=== PATIENT | male | born 1990 | race Caucasian/White ===

== ENCOUNTER 2019-08-02 18:24 | Emergency (ER) | payer OTHER ==
[~2019-08-02] VITALS: Ht 170.2 cm; Wt 81.8 kg
[2019-08-02 18:56] VITALS: BP 131/99
--- NOTE | 2019-08-02 19:10 | NUR ---
PT STATES HE DOESN'T KNOW IF HES ALLERGIC TO MEDICATIONS, BUT WAS ABLE TO STATE HE WAS IN [place]
== END 2019-08-02 19:23 | disposition home or self-care (01) ==
LOC: EDBD 18:25 → ER 18:25
DX: S80.812A Abrasion, left lower leg, initial encounter (principal); S80.811A Abrasion, right lower leg, initial encounter; F10.129 Alcohol abuse with intoxication, unspecified; V49.88XA Car occupant (driver) (passenger) injured in other specified transport accidents, initial encounter; Y93.89 Activity, other specified; Y92.413 State road as the place of occurrence of the external cause; Y99.9 Unspecified external cause status; Y90.9 Presence of alcohol in blood, level not specified
CPT/HCPCS: 99283

== ENCOUNTER 2021-03-11 00:23 | Emergency (ER) | payer MEDICAID, OTHER ==
[~2021-03-11] VITALS: Ht 170.2 cm; Wt 79.5 kg
[2021-03-11] MEDS ORDERED: LIDOcaine 1% W/epiNEPHrine 1:200,000 10ml vial IJ ONE (00:40)
[2021-03-11] MEDS ORDERED: TETanus/Pertussis (Acell)/Diphther VAC/PF (Tdap-Adult) 0.5ml syringe IMVAC ONE (00:40)
[2021-03-11 01:21] LABS: BASOPHILS # (AUTO) 0.1 X10'3 (0-0.2); EOSINOPHILS # (AUTO) 0.2 X10'3 (0-0.9); EOSINOPHILS % (AUTO) 3.7 % (0-6); HEMATOCRIT 47.7 % (42.0-52.0); HEMOGLOBIN 16.6 g/dl (14.0-17.9); LYMPHOCYTES # (AUTO) 1.4 X10'3 (1.1-4.8); LYMPHOCYTES % (AUTO) 24.4 % (21-51); MEAN CORPUSCULAR HEMOGLOBIN 31.5 PG (27.0-31.0); MEAN CORPUSCULAR HGB CONC 34.8 g/dL (33.0-36.5); MEAN CORPUSCULAR VOLUME 90.5 FL (78-98); MEAN PLATELET VOLUME 7.4 FL (7.4-10.4); MONOCYTES # (AUTO) 0.6 X10'3 (0-0.9); MONOCYTES % (AUTO) 10.8 % (2-12); NEUTROPHILS # (AUTO) 3.4 X10'3 (1.8-7.7); NEUTROPHILS % (AUTO) 59.1 % (42-75); PLATELET COUNT 222 X10'3 (140-440); RED BLOOD COUNT 5.27 X10'6 (4.70-6.10); RED CELL DISTRIBUTION WIDTH 13.9 % (11.5-14.5); WHITE BLOOD COUNT 5.8 X10'3 (4.5-11.0)
[2021-03-11 01:22] LABS: ALANINE AMINOTRANSFERASE 34 U/L (12-78); ALBUMIN 3.6 G/DL (3.4-5.0); ALBUMIN/GLOBULIN RATIO 0.9 (1.1-1.5); ALKALINE PHOSPHATASE 90 IU/L (46-116); ANION GAP 12 (8-16); ASPARTATE AMINO TRANSFERASE 56 U/L (10-37); BILIRUBIN,TOTAL 0.4 MG/DL (0.1-1.0); BLOOD UREA NITROGEN 10 MG/DL (7-18); BUN/CREATININE RATIO 11.8 (5.4-32.0); CHLORIDE 104 MMOL/L (99-107); CREATININE 0.85 MG/DL (0.60-1.10); GLUCOSE 90 MG/DL (70-104); POTASSIUM 3.7 MMOL/L (3.5-5.1); SODIUM 143 MMOL/L (135-145); TOTAL CARBON DIOXIDE 26.6 MMOL/L (24-32); TOTAL PROTEIN 7.6 G/DL (6.4-8.2); eGFR > 90 ML/MIN
[2021-03-11 01:24] LABS: ETHANOL 0.296 GM/DL (0.0-0.010)
[2021-03-11 01:25] LABS: ACETAMINOPHEN < 2.0 UG/ML (10-30)
--- NOTE | 2021-03-11 01:29 | NUR ---
Pt attempted to elope from the ED. Security and staff were able to escort him back into his room. Pt was expressively agitated and upset and swearing loudly. Pt observed to be upset about 5150 hold. Pt is now resting in bed with security on standby.
[2021-03-11 01:31] LABS: URINE AMPHETAMINE SCREEN NEGATIVE (Neg); URINE BARBITUATE SCREEN NEGATIVE (Neg); URINE BENZODIAZEPINES SCREEN NEGATIVE (Neg); URINE CANNABINOID SCREEN POSITIVE (Neg); URINE COCAINE SCREEN POSITIVE (Neg); URINE METHADONE SCREEN NEGATIVE (Neg); URINE OPIATE SCREEN NEGATIVE (Neg); URINE PHENCYCLIDINE SCREEN NEGATIVE (Neg)
--- NOTE | 2021-03-11 01:43 | NUR ---
at bedside putting stiches in the self-inflicted lac. While biometric technician was cleaning the wound, the lac began arterial bleed. was immediately called to the bedside where she began to lac repair with stitches.
--- NOTE | 2021-03-11 04:00 | NUR ---
received patient from ER ambulatory with RN ,patient alert oriented x4,no complain of pain,no respiratory distress ,no suicidal idea at this time,patient with dressing on left forearm clean not draining,awaiting for mental health evaluation,will monitored.
[2021-03-11 05:58] VITALS: BP 123/79
--- NOTE | 2021-03-11 06:22 | NUR ---
Patient sleeping on left side. No distress observed. Continue to monitor.
--- NOTE | 2021-03-11 08:15 | NUR ---
Patient eating breakfast. No distress observed. Continue to monitor.
--- NOTE | 2021-03-11 08:55 | NUR ---
[facility], evaluating patient. No distress observed. Continue to monitor.
--- NOTE | 2021-03-11 10:10 | NUR ---
at bedside. Patient and touchy/feely. No distress observed. Continue to monitor.
--- NOTE | 2021-03-11 10:26 | NUR ---
[facility], evaluating patient. No distress observed. Continue to montor.
--- NOTE | 2021-03-11 12:22 | NUR ---
Patient and are attempting to make a therapist appointment. Continue to monitor.
--- NOTE | 2021-03-11 13:42 | NUR ---
Patient attempting to contact therapist for an appointment. Continue to monitor.
== END 2021-03-11 15:40 | disposition home or self-care (01) ==
LOC: ER 00:23
DX: S51.812A Laceration without foreign body of left forearm, initial encounter (principal); Z20.822 Contact with and (suspected) exposure to COVID-19; R45.851 Suicidal ideations; F17.200 Nicotine dependence, unspecified, uncomplicated; Z72.89 Other problems related to lifestyle; W45.8XXA Other foreign body or object entering through skin, initial encounter; Y93.89 Activity, other specified; Y92.89 Other specified places as the place of occurrence of the external cause; Y99.8 Other external cause status
CPT/HCPCS: 12004; 12034; 36415; 80053; 80305; 80320; 80329; 85025; 87426; 90471; 90715; 99285

== ENCOUNTER 2021-06-03 11:39 | Emergency (ER) | payer MEDICAID, OTHER ==
[~2021-06-03] VITALS: Ht 177.8 cm; Wt 82.0 kg
[2021-06-03 12:18] LABS: BASOPHILS % (AUTO) 0.4 % (0-1); EOSINOPHILS # (AUTO) 0.1 X10'3 (0-0.9); EOSINOPHILS % (AUTO) 0.5 % (0-6); HEMATOCRIT 48.3 % (42.0-52.0); HEMOGLOBIN 16.6 g/dl (14.0-17.9); LYMPHOCYTES # (AUTO) 0.9 X10'3 (1.1-4.8); LYMPHOCYTES % (AUTO) 8.1 % (21-51); MEAN CORPUSCULAR HEMOGLOBIN 31.6 PG (27.0-31.0); MEAN CORPUSCULAR HGB CONC 34.3 g/dL (33.0-36.5); MEAN CORPUSCULAR VOLUME 92.2 FL (78-98); MEAN PLATELET VOLUME 7.1 FL (7.4-10.4); MONOCYTES # (AUTO) 1.1 X10'3 (0-0.9); MONOCYTES % (AUTO) 10.4 % (2-12); NEUTROPHILS # (AUTO) 8.5 X10'3 (1.8-7.7); NEUTROPHILS % (AUTO) 80.6 % (42-75); PLATELET COUNT 196 X10'3 (140-440); RED BLOOD COUNT 5.24 X10'6 (4.70-6.10); RED CELL DISTRIBUTION WIDTH 13.1 % (11.5-14.5); WHITE BLOOD COUNT 10.5 X10'3 (4.5-11.0)
[2021-06-03 12:30] LABS: ALANINE AMINOTRANSFERASE 51 U/L (12-78); ALBUMIN 3.8 G/DL (3.4-5.0); ALBUMIN/GLOBULIN RATIO 0.9 (1.1-1.5); ALKALINE PHOSPHATASE 99 IU/L (46-116); ANION GAP 9 (8-16); ASPARTATE AMINO TRANSFERASE 61 U/L (10-37); BILIRUBIN,TOTAL 0.8 MG/DL (0.1-1.0); BLOOD UREA NITROGEN 6 MG/DL (7-18); BUN/CREATININE RATIO 7.9 (5.4-32.0); CALCIUM 8.5 MG/DL (8.5-10.1); CHLORIDE 101 MMOL/L (99-107); CREATININE 0.76 MG/DL (0.60-1.10); GLUCOSE 80 MG/DL (70-104); POTASSIUM 3.8 MMOL/L (3.5-5.1); SODIUM 141 MMOL/L (135-145); TOTAL CARBON DIOXIDE 30.9 MMOL/L (24-32); TOTAL PROTEIN 7.9 G/DL (6.4-8.2); eGFR > 90 ML/MIN
[2021-06-03 12:39] LABS: ETHANOL 0.171 GM/DL (0.0-0.010)
[2021-06-03] MEDS ORDERED: LORazepam 1 MG tablet PO ONE ×2 (12:45→13:15)
--- NOTE | 2021-06-03 17:00 | NUR ---
Pt resting with eyes closed, effortless respirations observed.
[2021-06-03 17:23] LABS: URINE AMPHETAMINE SCREEN NEGATIVE (Neg); URINE BARBITUATE SCREEN NEGATIVE (Neg); URINE BENZODIAZEPINES SCREEN NEGATIVE (Neg); URINE CANNABINOID SCREEN POSITIVE (Neg); URINE COCAINE SCREEN POSITIVE (Neg); URINE METHADONE SCREEN NEGATIVE (Neg); URINE OPIATE SCREEN NEGATIVE (Neg); URINE PHENCYCLIDINE SCREEN NEGATIVE (Neg)
[2021-06-03 17:29] LABS: CLARITY,URINE CLEAR (Clear); COLOR,URINE YELLOW (Yellow); GLUCOSE, URINE NEGATIVE (Neg); KETONES,URINE NEGATIVE (Neg); LEUKOCYTE ESTERASE ,URINE NEGATIVE (Neg); NITRITES, URINE NEGATIVE (Neg); OCCULT BLOOD,URINE NEGATIVE (Neg); PH,URINE 5.5 (4.8-8.0); PROTEIN,URINE NEGATIVE (Neg)
[2021-06-03 17:32] LABS: UA COLLECTION TYPE URINAL
--- NOTE | 2021-06-03 17:40 | NUR ---
Packet sent to [facility]
[2021-06-03] MEDS ORDERED: NO HOME MEDS (19:19)
--- NOTE | 2021-06-03 19:28 | NUR ---
One to one with the patient to assess severity of depressive symptoms and self harm risk. The patient stated that he has been feeling suicidal for the past 4 days and when asked if he had a plan he replied, "A bunch of different ways" He reports that he has been drinking every day and when he stops drinking he has tremors. He denies a history of hallucinations or seizures with etoh withdrawals. Stated he usually drinks "just enough to get numb" He stated that his anxiety is high. He was not able to identify any stressors. He stated that he lives with his mother and two younger siblings.
[2021-06-03] MEDS ORDERED: acetaminophen 325mg tablet PO PRN (19:40)
--- NOTE | 2021-06-03 19:46 | NUR ---
Dr. Fox made aware of patient heel wounds and orders received.
[2021-06-03] MEDS: bacitracin 15gm ointment TP SCH (20:16)
--- NOTE | 2021-06-03 20:52 | NUR ---
The patient appears to be sleeping
--- NOTE | 2021-06-03 22:53 | NUR ---
The patient appears to be sleeping
--- NOTE | 2021-06-04 01:03 | NUR ---
The patient appears to be sleeping
--- NOTE | 2021-06-04 03:11 | NUR ---
The patient appears to be sleeping
--- NOTE | 2021-06-04 05:03 | NUR ---
THe patient appeared to have slept well throughout the night
--- NOTE | 2021-06-04 07:05 | NUR ---
Pt sleeping on right side, respirations even and unlabored.
--- NOTE | 2021-06-04 09:03 | NUR ---
[facility] at bedside. Pt ate 100% of breakfast. Pt was placed on a 5150 hold. Pt calm and cooperative.
[2021-06-04] MEDS: bacitracin 15gm ointment TP SCH ×2 (09:33→20:00)
--- NOTE | 2021-06-04 11:05 | NUR ---
Pt resting comfortably on right side. Pt arouses to name, respirations even and unlabored.
--- NOTE | 2021-06-04 13:59 | NUR ---
Pt sleeping comfortably on left side. Pt ate 100% of his lunch. Pt has been calm/coopertive. Pt continues to endorse suicidal thoughts with a plan to overdose on "cocaine and alcohol." "I will do it."
--- NOTE | 2021-06-04 14:05 | NUR ---
Spoke with Dr. Lewis to assess pt's posterior ankles. Area around wound is red. Covered with a dry dressing.
--- NOTE | 2021-06-04 15:43 | NUR ---
Pt's ankles were cleaned and dressed. Pt resting comfortably, respirations even and unlabored.
--- NOTE | 2021-06-04 16:41 | NUR ---
Dr. Ware assessed area. Continue to monitor, keep area clean and dry.
[2021-06-04] MEDS ORDERED: chlordiazePOXIDE 25mg capsule PO STA (19:52)
[2021-06-04] MEDS ORDERED: cloNIDine 0.1 MG/24 HOUR patch (7 day patch) TD SCH (19:55)
--- NOTE | 2021-06-04 19:56 | NUR ---
spoke with chapis sanders regarding pt being shaky and tremulous and reporting high levels of anxiety. received verbal orders for librium 25mg po bid and a one time now dose of librium 100mg po now. also, clonidine patch 0.1mg daily. orders placed as received
[2021-06-04] MEDS ORDERED: chlordiazePOXIDE 25mg capsule PO SCH (20:00)
[2021-06-04] MEDS ORDERED: chlordiazePOXIDE 25mg capsule PO PRN (20:10)
--- NOTE | 2021-06-04 20:26 | NUR ---
During 1:1 bedside assessment, pt reports suicidal ideation with no plan as "would include me getting out of this building and I can't right now." Pt did not elaborate. Pt states he does sometimes have auditory and visual hallucinations but denies any today. States he feels extremely anxious and appears tremulous. vitals all WNL. spoke with chapis sanders and received medication orders and administered to pt. pt denies any hx of seizures or severe withdrawal symptoms. pt denies homicidal ideation and has an anxious affect. appears disheveled with unbrushed hair and wrinkled clothes-has not requested to change since being here. pt states he stayed in bed most of day and feels depressed.
--- NOTE | 2021-06-04 22:52 | NUR ---
PT APPEARS TO BE SLEEPING PEACEFULLY ON RIGHT SIDE. NO S/S ACUTE DISTRESS, RESPIRATIONS EQUAL AND UNLABORED.
--- NOTE | 2021-06-05 01:44 | NUR ---
pt appears to be sleeping
--- NOTE | 2021-06-05 03:57 | NUR ---
pt appears to be sleeping
[2021-06-05] MEDS: bacitracin 15gm ointment TP SCH (08:00)
--- NOTE | 2021-06-05 15:16 | NUR ---
[facility] AT BEDSIDE COMPLETING MEDI [facility] FORM. 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
--- NOTE | 2021-06-05 15:22 | NUR ---
UP TO BATHROOM
[2021-06-05 17:55] VITALS: BP 142/93
== END 2021-06-05 19:05 ==
LOC: ER 11:40
DX: R45.851 Suicidal ideations (principal); Z20.822 Contact with and (suspected) exposure to COVID-19; R11.10 Vomiting, unspecified; Z72.89 Other problems related to lifestyle; F11.90 Opioid use, unspecified, uncomplicated
CPT/HCPCS: 36415; 70450; 72125; 80053; 80305; 80320; 81003; 84443; 85025; 87635; 99285; C9803

== ENCOUNTER 2024-10-21 02:18 | Emergency (ER) | payer MEDICAID ==
[~2024-10-21] VITALS: Ht 167.6 cm; Wt 70.5 kg
[~2024-10-21 02:18] MED LIST: NO HOME MEDS
[2024-10-21] MEDS: naloxone 0.4 mg/ml inj IV ONE (02:25)
[2024-10-21] MEDS: normal saline 1000ml 1,000 ML IV ONE (02:26)
[2024-10-21] MEDS: naloxone 2mg/2ml inj ONE (02:26)
[2024-10-21 02:43] LABS: BASOPHILS # (AUTO) 0.1 X10'3 (0-0.2); BASOPHILS % (AUTO) 1.2 % (0-1); EOSINOPHILS # (AUTO) 0.1 X10'3 (0-0.9); EOSINOPHILS % (AUTO) 1.5 % (0-6); HEMATOCRIT 45.7 % (42.0-52.0); HEMOGLOBIN 15.6 g/dl (14.0-17.9); LYMPHOCYTES # (AUTO) 2.2 X10'3 (1.1-4.8); LYMPHOCYTES % (AUTO) 35.4 % (21-51); MEAN CORPUSCULAR HEMOGLOBIN 29.9 PG (27.0-31.0); MEAN CORPUSCULAR VOLUME 87.9 FL (78-98); MEAN PLATELET VOLUME 7.4 FL (7.4-10.4); MONOCYTES # (AUTO) 0.5 X10'3 (0-0.9); MONOCYTES % (AUTO) 8.7 % (2-12); NEUTROPHILS # (AUTO) 3.3 X10'3 (1.8-7.7); NEUTROPHILS % (AUTO) 53.2 % (42-75); PLATELET COUNT 260 X10'3 (140-440); RED CELL DISTRIBUTION WIDTH 13.2 % (11.5-14.5); WHITE BLOOD COUNT 6.1 X10'3 (4.5-11.0)
[2024-10-21 02:57] LABS: ANION GAP 11 (8-16); CALCIUM 8.5 MG/DL (8.5-10.1); CHLORIDE 106 MMOL/L (99-107); CREATININE 0.85 MG/DL (0.60-1.10); GLUCOSE 98 MG/DL (70-104); POTASSIUM 3.6 MMOL/L (3.5-5.1); SODIUM 143 MMOL/L (135-145); TOTAL CARBON DIOXIDE 25.7 MMOL/L (24-32); eCRCL 109 ML/MIN; eGFR > 90 ML/MIN
[2024-10-21 03:10] LABS: ALANINE AMINOTRANSFERASE 15 U/L (12-78); ALBUMIN/GLOBULIN RATIO 1.1 (1.1-1.5); ALKALINE PHOSPHATASE 64 IU/L (46-116); ASPARTATE AMINO TRANSFERASE 17 U/L (10-37); BILIRUBIN,TOTAL 0.3 MG/DL (0.1-1.0); BLOOD UREA NITROGEN 5 MG/DL (7-18); BUN/CREATININE RATIO 5.9 (10.0-20.0); ETHANOL 253 MG/DL (<10); TOTAL PROTEIN 7.8 G/DL (6.4-8.2)
[2024-10-21 06:57] VITALS: BP 113/87; PULSE 131; RESP 14; O2SAT 96
== END 2024-10-21 07:00 | disposition home or self-care (01) ==
LOC: ER 02:18
DX: F10.129 Alcohol abuse with intoxication, unspecified (principal); Y90.8 Blood alcohol level of 240 mg/100 ml or more
CPT/HCPCS: 36415; 80053; 80320; 85025; 96361; 96374; 99283; J2310; J7030

== ENCOUNTER 2025-01-25 16:01 | Emergency (ER) | payer MEDICAID ==
[~2025-01-25] VITALS: Ht 175.3 cm; Wt 77.0 kg
[2025-01-25 16:08] VITALS: BP 132/78; PULSE 93; RESP 15; O2SAT 99
[2025-01-25] MEDS: LIDOcaine 1% W/epiNEPHrine 1:100,000 20ml vial IJ STA (17:11)
[2025-01-25 18:54] VITALS: TEMP 99
== END 2025-01-25 18:50 | disposition home or self-care (01) ==
LOC: ER 16:01
DX: S01.81XA Laceration without foreign body of other part of head, initial encounter (principal); F14.90 Cocaine use, unspecified, uncomplicated; Z72.89 Other problems related to lifestyle; W26.8XXA Contact with other sharp object(s), not elsewhere classified, initial encounter; Y93.89 Activity, other specified; Y92.89 Other specified places as the place of occurrence of the external cause; Y99.8 Other external cause status
CPT/HCPCS: 12013; 70100; 99283; J7030

== ENCOUNTER 2025-02-03 21:04 | Emergency (ER) | payer MEDICAID ==
[~2025-02-03] VITALS: Ht 172.7 cm; Wt 79.2 kg
[2025-02-03 21:07] VITALS: BP 138/82; PULSE 108; RESP 16; TEMP 98; O2SAT 95
== END 2025-02-03 21:19 | disposition home or self-care (01) ==
LOC: ER 21:05
DX: Z65.3 Problems related to other legal circumstances (principal)
CPT/HCPCS: 99283